=== PATIENT | female | born 1935 | race Asian ===

== ENCOUNTER 2018-08-24 07:06 | Day surgery (SDC) | payer OTHER ==
[2018-08-24] MEDS ORDERED: FENTAnyl 50 MCG/ML VIAL (08:28)
[2018-08-24] MEDS ORDERED: PROPOFOL 20 ML (08:28)
== END 2018-08-24 12:31 | disposition home or self-care (01) ==
LOC: GIL 07:06
DX: Z12.11 Encounter for screening for malignant neoplasm of colon (principal); K57.30 Diverticulosis of large intestine without perforation or abscess without bleeding; Z85.048 Personal history of other malignant neoplasm of rectum, rectosigmoid junction, and anus
CPT/HCPCS: 45380; 88305